=== PATIENT | female | born 1970 | race Hispanic/Latino ===

== ENCOUNTER 2025-03-08 16:09 | Emergency (ER) | payer SELFPAY ==
[2025-03-08 16:28] VITALS: BP 107/60
[2025-03-08 17:03] LABS: ALT (SGPT) 51 U/L (0-35); AST (SGOT) 74 U/L (14-36); Albumin 4.4 g/dl (3.5-5.0); Alkaline Phosphatase 148 U/L (38-126); Blood Urea Nitrogen 10 mg/dl (7-17); Calcium 9.5 mg/dl (8.4-10.2); Carbon Dioxide 22 mmol/L (22-30); Chloride 108 mmol/L (98-107); Glucose 133 mg/dl (70-99); Potassium 4.2 mmol/L (3.5-5.1); Sodium 141 mmol/L (135-145); Total Protein 7.8 g/dl (6.3-8.2); eGFR > 60.00
[2025-03-08 17:11] LABS: % Basophils 0.6 % (0-2); % Eosinophils 3.6 % (0-6); % Lymphocytes 31.3 % (20.5-51.1); % Monocytes 4.6 % (1.7-9.3); % Neutrophils 59.9 % (42.2-75.2); Absolute Eosinophils 0.1 10^3/uL (0-0.7); Absolute Monocytes 0.2 10^3/uL (0.1-0.6); Hematocrit 39.5 % (37.0-47.0); Hemoglobin 13.3 g/dL (12.0-16.0); Mean Corp Hgb Conc. 33.7 g/dL (33.0-37.0); Mean Corpuscular Hgb 31.2 pg (27.0-31.0); Mean Corpuscular Volume 92.7 fL (81.0-99.0); Mean Platelet Volume 12.1 fL (7.4-10.4); Nucleated Red Blood Cells % 0 %; Platelet Count 75 10^3/uL (130-400); Red Blood Cell Count 4.26 10^6/uL (4.20-5.40); Red Cell Dist. Width 14.1 % (11.5-14.5); White Blood Cell Count 3.3 10^3/uL (4.8-10.8)
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
[2025-03-08 18:50] VITALS: BP 118/62
[2025-03-08 19:00] VITALS: BP 148/78
== END 2025-03-08 19:50 | disposition home or self-care (01) ==
LOC: EMR 16:09
PROVIDERS: EMERGENCY PHYSICIAN Emergency Medicine
DX: D69.6 Thrombocytopenia, unspecified (principal); K75.4 Autoimmune hepatitis
CPT/HCPCS: 99283; 80053; 85025